=== PATIENT | female | born 1985 | race Two or more races ===

== ENCOUNTER 2023-03-06 12:15 | Outpatient (CLI) | payer BC | END 2023-03-06 12:16 | disposition home or self-care (01) | LOC: CSHULT 12:15 | PROVIDERS: ATTEND Family Medicine | DX: R10.2 Pelvic and perineal pain (principal); D25.9 Leiomyoma of uterus, unspecified; N83.02 Follicular cyst of left ovary; N83.01 Follicular cyst of right ovary | CPT/HCPCS: 76856 ==

== ENCOUNTER 2024-08-20 09:57 | Outpatient (CLI) | payer BC | END 2024-08-20 09:58 | disposition home or self-care (01) | LOC: CSHULT 09:57 | DX: R10.2 Pelvic and perineal pain (principal); D25.9 Leiomyoma of uterus, unspecified | CPT/HCPCS: 76856 ==